=== PATIENT | female | born 1990 | race Caucasian/White ===

== ENCOUNTER → 2022-02-26 11:16 | Outpatient (BNVA) | payer MEDICAID, SELFPAY | PROVIDERS: PCP Registered Nurse; Visit Provider Surgery | DX: L40.9 Psoriasis, unspecified (principal) | CPT/HCPCS: 99202 ==

== ENCOUNTER 2022-09-17 13:49 | Outpatient (REF) | payer OTHER, MEDICAID, SELFPAY ==
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
== END 2022-09-17 13:50 | disposition home or self-care (01) ==
LOC: HO.HHCX 13:49
PROVIDERS: Visit Provider Registered Nurse
DX: M54.50 Low back pain, unspecified (principal); G89.29 Other chronic pain
CPT/HCPCS: 72100

== ENCOUNTER 2023-06-24 10:40 | Outpatient (REF) | payer OTHER, MEDICAID, SELFPAY ==
[2023-06-26 21:48] LABS: TS Negative Control Passed; TS Panel A 0; TS Panel B 1; TS Positive Control Passed; TSpotTB Negative (Negative)
== END 2023-06-24 10:41 | disposition home or self-care (01) ==
LOC: HO.CHCLDS 10:40
PROVIDERS: Visit Provider Internal Medicine
DX: L40.0 Psoriasis vulgaris (principal)
CPT/HCPCS: 36415; 86481

== ENCOUNTER 2023-07-09 11:44 | Outpatient (REF) | payer OTHER, MEDICAID, SELFPAY ==
[2023-07-09 13:12] LABS: MANUAL DIFF FLAG NO
[2023-07-09 13:31] LABS: Basophils Percent Auto 0.4 % (0-2); Eosinophils Absolute Auto 0.4 X10*3/uL (0.0-0.4); Eosinophils Percent Auto 3.5 % (0-4); Hematocrit 39.3 % (37.0-47.0); Hemoglobin 13.5 g/dl (12.0-16.0); Imm Gran Abs Auto 0.03 X10*3/uL (0.00-0.03); Imm Gran Pct Auto 0.3 % (0.0-0.4); Lymphocytes Percent Auto 30.7 % (20-40); Mean Corpuscular HGB Conc 34.4 g/dl (31.0-35.0); Mean Corpuscular Hemoglobin 29.7 pg (27.0-33.0); Mean Corpuscular Volume 86.6 fL (80.0-98.0); Mean Platelet Volume 10.8 fL (9.4-12.3); Monocytes Absolute Auto 0.8 X10*3/uL (0.1-1.2); Monocytes Percent Auto 8.1 % (2-11); Neutrophils Absolute Auto 5.7 x10*3/uL (2.0-8.3); Platelet Count 287 X10*3/uL (160-400); Red Blood Count 4.54 X10*6/uL (4.20-5.50); Red Cell Distribution Width 12.7 % (11.0-16.0); White Blood Count 9.9 X10*3/uL (4.8-10.8)
[2023-07-09 14:02] LABS: Anion Gap 10 (12-20); Blood Urea Nitrogen 12 mg/dL (9-16); Calcium 9.6 mg/dL (8.4-10.2); Carbon Dioxide 23 mmol/L (22-29); Chloride 110 mmol/L (96-108); Cholesterol 167 mg/dL (<200); Estimated Glomerular Filt Rate > 60; Glucose Random 103 mg/dL (60-115); HDL Cholesterol 38 mg/dL (>40); LDL Cholesterol Calculated 108 mg/dL (<100); Potassium 3.9 mmol/L (3.3-5.1); Sodium 139 mmol/L (135-145); Triglycerides 108 mg/dL (<150)
[2023-07-09 14:04] LABS: Vitamin D 25-OH Total 38.4 ng/mL (>30)
[2023-07-09 14:33] LABS: Erythrocyte Sedimentation Rate 17 MM/HR (0-20)
[2023-07-09 14:57] LABS: Estimated Average Glucose 111 mg/dL; Hemoglobin A1c % 5.5 % (<6.0)
[2023-07-10 04:18] LABS: Rheumatoid Factor < 13.0 IU/mL (<15.0)
[2023-07-11 14:39] LABS: Cyclic Citrullinated Peptide <16 UNITS
== END 2023-07-09 11:45 | disposition home or self-care (01) ==
LOC: HO.HHCL 11:44
PROVIDERS: Visit Provider Registered Nurse
DX: M25.571 Pain in right ankle and joints of right foot (principal); M25.572 Pain in left ankle and joints of left foot; E66.01 Morbid (severe) obesity due to excess calories; Z68.42 Body mass index [BMI] 45.0-49.9, adult
CPT/HCPCS: 36415; 80048; 80061; 82306; 83036; 85025; 85652; 86200; 86431

== ENCOUNTER 2025-03-16 11:13 | Outpatient (REF) | payer MEDICAID, SELFPAY ==
--- OUTSIDE RECORDS SUMMARY | 2025-03-12 19:25 | XMS_ITS | Encounter Summary ---
Author Organization [employer] Address [address] [place] [address] Care Team Providers Care Cash Surrender Calculator Name Role Phone [facility] Primary Care Provider [phone] Reason for Referral * Consultation (Routine) - Pending Review Specialty Diagnoses / Procedures Referred By Lawrence avelar Referred To Contact Orthopaedics / Orthopedic Diagnoses Acute pain of right knee Ovi Salazar PA [address] [place] [address] Phone: tel: fax: Referral ID Status Reason Start Date Expiration Date Visits Requested Visits Authorized [id number] Pending Review Specialty Services Required 5 03/12/2026 1 1 Reason for Visit * Reason Comments Knee Pain Encounter Details Date Type Department Care Team (Late st Contact Info) Description 03/12/2025 7:25 PM EST - 03/12/2025 7:44 PM EST Emergency [facility] Emergency [address] [place] [address] Acute pain of right knee (Primary Dx) Discharge Disposition: Home or Self Care Social History Tobacco Use Types Packs/Day Years Used Date Smoking Tobacco: Never Smokeless Tobacco: Never Tobacco Cessation:Counseling Given: Not Answered Comments Unknown Sex and Gender Information Value Date Recorded Sex Assigned at Not on file Legal Sex Female 5:44 AM EST Gender Identity Not on file Sexual Orientation Not on file documented as of this encounter Last Filed Vital Signs Vital Sign Reading Time Taken Comments Blood Pressure 137/81 03/12/2025 6:30 PM EST Pulse 96 03/12/2025 6:30 PM EST Temperature 37 C (98.6 F) 03/12/2025 6:30 PM EST Respiratory Rate 18 03/12/2025 6:30 PM EST Oxygen Saturation 96% 03/12/2025 6:30 PM EST Inhaled Oxygen Concentration - - Weight - - Height - - Body Mass Index - - documented in this encounter Functional Status * Calculated C-SSRS Risk Score (Lifetime/Recent) Answer Date of Assessment Author No Risk Indicated 03/12/2025 6:27 PM EST Fifi Real RN * [place] Suicide Severity Rating Scale (Screener/Recent Self-Report) Question Answer Date of Assessment Author 1. Wish to be (Past 1 Month) No 025 6:27 PM EST Fifi Real RN 2. Non-Specific Active Suici nancy Thoughts (Past 1 Month) No 03/12/2025 6:27 PM EST Fifi Real RN 6. Suicidal Behavior (Lifetime) No 6:27 PM EST Fifi Real RN documented as of this encounter Discharge Instructions * Discharge Instructions* SAKSHI Patiño - 03/12/2025 7:30 PM EST X-ray shows no fracture dislocation or acute bony abnormality Recommend Deondre wrap for the next Jazmine days to 1 week Can walk with cane if needed Ice therapy twice a time for the first 48 hours then switch to heat therapy 20 minutes at a time Tylenol/ibuprofen for pain as needed as directed Follow-up with orthopedist if pain persist greater than 2 weeks for reevaluation/further workup * Attachments The following attachments cannot be sent through Care Everywhere. * Knee Pain or Injury (Wolof) documented in this encounter Medications at Time of Discharge ibuprofen (ADVIL,MOTRIN) 800 mg tablet Take 1 tablet by mouth every 6-8 hours as needed for pain. 30 tablet 03/12/2025 03/22/2025 documented as of this encounter Ordered Prescriptions Prescription Sig Dispense Quantity Refills Last Filled Start Date End Date ibuprofen (ADVIL,MOTRIN) 800 mg tablet Take 1 tablet by mouth every 6-8 hours as needed for pain. 30 tablet 03/12/2025 03/22/2025 documented in this encounter Discharge Disposition Disposition Code Departure Means Destination Comment s Home or Self Care Reviewed discharge and rx instructions, referred to follow up with pcp and ortho, verbalized understanding, self ambulated to exit documented in this encounter Progress Notes * Fifi Real RN - 03/12/2025 6:25 PM EST Patient reports falling back in October in her kitchen has cement floors now reports increased swelling and difficulty walking/bending knee. Patient walking in triage able to move knee back and forth with pain. * SAKSHI Patiño - 03/12/2025 6:23 PM EST HPI Chief Complaint Patient presents with Knee Pain HPI presenting with right knee pain after tripping and falling in the kitchen earlier tonight. Ableto bear weight since the incident. Denies previous knee injury or surgery. Denies hitting head or loss of consciousness. No reported neck or back pain. Not on blood thinners. Ralf Coma Scale Score: 15 Patient History Medical History[1] Surgical History[2] Family History[3] Social History Tobacco Use Smoking status: Never Smokeless tobacco: Never Substance Use Topics Alcohol use: Not on file Drug use: Not on file Review of Systems Review of Systems Physical Exam ED Triage Vitals [03/12/25 1830] Temp Heart Rate Resp BP 37 ??C (98.6 ??F) 96 18 137/81 SpO2 Temp src Heart Rate Source Patient Position 96 % -- -- -- BP Location FiO2 (%) -- -- Physical Exam GENERAL: Well developed, no acute distress HEENT: Normocephalic and atraumatic, EOMI NECK: Supple, trachea is midline RESP: No respiratory distress CARDIOVASCULAR: Regular rate GASTROINTESTINAL: Abdomen is soft, non distended MUSCULOSKELETAL: ROM normal, no obvious acute deformities, distal CMS intact, negative varus valgusstress pain, negative Kayla's, negative Jia's, walking with slight limp SKIN: Warm and dry NEUROLOGIC: At baseline, no acute focal deficits PSYCHIATRIC: Calm and cooperative ED Course & MDM Clinical Impressions as of 03/12/251930 Acute pain of right knee Medical Decision Making DDX: Fracture, dislocation, sprain, strain, other soft tissue injuries Vital signs reviewed Pulse oximetry reviewed and found to be > 94% on room air Physical exam as above Nursing notes reviewed X-rays negative for obvious fracture dislocation acute bony abnormality Social determinants of health considered including housing follow-up social and financial support Patient deemed appropriate for discharge with symptomatic treatment, recommendations to follow-up with primary care doctor / specialist with return precautions provided Procedures Procedure: Splint Application Distal CMS intact prior to splint Deondre wrap applied and fitted appropriately by myself or under my supervision from another staff member of the ED Distal CMS intact after splint Cane provided [1] Past Medical History: Diagnosis Date Arthritis Asthma History of psoriasis [2] History reviewed. No pertinent surgical history. [3] No family history on file. SAKSHI Patiño [birth year]/251931 Cosigned by Aravind Hamilton MD at 03/13/2025 12:21 AM EST documented in this encounter Plan of Treatment Scheduled Referrals Name Type Priority Associated Diagnoses Order Schedule Ambulatory referral to Orthopedic Outpatient Referral Routine 1 Occurrence s starting 03/12/2025 until 03/12/2026 documented as of this encounter Procedures Procedure Name Priority Date/Time Associated Diagnosis Comments XR KNEE 4+ VIEWS RIGHT STAT 03/12/2025 6:47 PM EST POC , URINE DIAGNOSTIC STAT 03/12/2025 6:35 PM EST documented in this encounter Results * XR Knee 4+ Views Right (03/12/2025 6:47 PM EST) Anatomical Region Laterality Modality Lower Extremities, Knee Right [facility] 03/13/2025 7:21 AM EST Impressions 03/13/2025 7:23 AM EST Unremarkable right knee exam. -------- FINAL REPORT -------- Dictated By: Morgan Wayne Dictated Date: 03/13/2025 07:21 ET Assigned Physician: Morgan Wayne Reviewed and Electronically Signed By: Morgan Wayne Signed Date: 03/13/2025 07:23 ET Workstation ID: [id number] Transcribed By: Self Edit Transcribed Date: 03/13/2025 07:21 ET Narrative 03/13/2025 7:23 AM EST EXAMINATION: Right knee 4 views. CLINICAL INDICATIONS: fall in October. Pain . COMPARISON: None. FINDINGS: The tricompartmental joint spaces preserved. No visible acute fracture, loose bodies are dislocation seen. There is no abdominal joint effusion. The soft tissues are normal. Procedure Note Morgan Wayne MD - 03/13/2025 EXAMINATION: Right knee 4 views. CLINICAL INDICATIONS: fall in October. Pain . COMPARISON: None. FINDINGS: The tricompartmental joint spaces preserved. No visible acutefracture, loose bodies are dislocation seen. There is no abdominal jointeffusion. The soft tissues are normal. IMPRESSION: Unremarkable right knee exam. -------- FINAL REPORT -------- Dictated By: Morgan Wayne Dictated Date: 03/13/2025 07:21 ET Assigned Physician: Morgan Wayne Reviewed and Electronically Signed By: Morgan Wayne Signed Date: 03/13/2025 07:23 ET Workstation ID: [id number] Transcribed By: Self Edit Transcribed Date: 03/13/2025 07:21 ET Aravind Hamilton MD IMG XR PROCEDURES Final R esult * POC , urine manually resulted (03/12/2025 6:35 PM EST) HCG, Ur POC Negative Negative POC hCG Int QC Pass? Yes Yes Urine Urine specimen obtained by clean catch procedure / Unknown 03/12/2025 6:35 PM EST Aravind Hamilton MD POINT OF CARE TEST ENTER/ EDIT ORDERABLES Final Result documented in this encounter Visit Diagnoses Diagnosis Acute pain of right knee- Primary documented in this encounter Administered Medications Inactive Administered Medications - up to 3 most recent administrations Medication Order MAR Action Action Date Dose Rate Site acetaminophen (TYLENOL) tablet 1,000 mg 1,000 mg, oral, Once, On 03/12/25 at 1932, For 1 dose Given 03/12/2025 7:38 PM EST 1,000 mg documented in this encounter Active and Recently Administered Medications Times are shown in EST. Scheduled Medication Order 03/10/2025 03/11/2025 03/12/2025 acetaminophen (TYLENOL) tablet 1,000 mg (COMPLETED) 1,000 mg, oral, Once, On 03/12/25 at 1932, For 1 dose 1937 (Given - Provid er: Barbra Malone RN) documented in this encounter Orders General Supply Count Last Ordered Date First Or dered Date GENERAL SUPPLY 1 03/12/2025 documented in this encounter Care Teams Cash Surrender Calculator Relationship Specialty Start Date End Date Ekta Steward [address] [place] [phone] PCP - General Family Medicine 03/12/25 documented as of this encounter
--- OUTSIDE RECORDS SUMMARY | 2025-03-16 10:00 | XMS_ITS | Encounter Summary ---
Author Organization [employer] Address [address] [place] [address] [address] [place] [address] Care Team Providers Care Oracle Technical Architect Name Role Phone Bin [facility] Primary Care Provider [phone] Reason for Visit * Reason Comments Follow-up Encounter Details Date Type Department Care Team ([facility] Contact Info) Description 03/16/2025 10:00 AM EST Office Visit [facility] [address], [place] [phone] [facility] [address] [place] [address] Severe episode of recurrent major depressive disorder, without psychotic features (CMS/HCC) (HCC) (Primary Dx); Dietary counseling; Exercise counseling; Class 3 severe obesity due to excess calories with body mass index (BMI) of 50.0 to 59.9 in adult, unspecified whether serious comorbidity present (HCC); Encounter for immunization Social History Tobacco Use Types Packs/Day Years Used Date Smoking Tobacco: Never Smokeless Tobacco: Never Tobacco Cessation:Counseling Given: Not Answered Alcohol Use Standard Drinks/Week Comments Not Currently 0 (1 standard drink = 0.6 oz pur e alcohol) Depression Answer Date Recorded Patient Health Questionnaire-9 Score 21 03/16/2025 Patient Health Questionnaire-9 Score 21 03/16/2025 Last PHQ-9: Questionnaire Data Not on file 1 05/16/2024 Housing Stability Answer Date Recorded What is your housing situation today? I have valeria darnell 02/17/[address] you li ve. Do you have problems with any of the following? None of the above 02/17/2023 Food Insecurity Answer Date Recorded Within the past 12 months, y ou worried that your food would run out before you got money to buy more: Never True 02/17/2023 Within the past 12 months,th e food you bought just didn't last and you didn't have enough money to get more: Never True Transportation Answer Date Recorded In the past 12 months, has l ack of transportation kept you from medical appts, meetings, work or from getting things needed for daily living? Yes, it has kept me from non-medical meetings, work, or getting things that I need 07/02/2023 Utilities Answer Date Recorded In the past 12 months, has t he electric, gas, oil or water company threatened to shut off services in your home? No 02/17/2023 Depression Answer Date Recorded Patient Health Questionnaire-2 Score 6 03/16/2025 Comments No Sex and Gender Information Value Date Recorded Sex Assigned at Female 02/25/2022 10:38 AM EDT Legal Sex Female 10:38 AM EDT Gender Identity Female 02/25/2022 10:38 AM EDT Sexual Orientation Straight 02/25/2022 10 :38 AM EDT documented as of this encounter Last Filed Vital Signs Vital Sign Reading Time Taken Comments Blood Pressure 120/82 03/16/2025 10:08 AM EST Pulse 84 03/16/2025 10:08 AM EST Temperature 36.5 C (97.7 F) 03/16/2025 10:08 AM EST Respiratory Rate 20 03/16/2025 10:08 AM EST Oxygen Saturation - - Inhaled Oxygen Concentration - - Weight 113 kg (250 lb 3.2 oz) 03/16/2025 10:08 A M EST Height 149.9 cm (4' 11 ) 03/16/2025 10:08 AM EST Body Mass Index 50.53 03/16/2025 10:08 AM EST documented in this encounter Functional Status * Over the past 2 weeks, how often have you been bothered by any of the following problems? Question Answer Date of Assessment Author Patient Health Questionnaire-2 Score 6 03/16/2025 11:24 AM EST Ayanna Harkins LICSW * Little interest or pleasure in doing things Answer Date of Assessment Author Nearly every day 03/16/2025 11:24 AM EST Anamaria Jin LICSW * Feeling down, depressed, or hopeless Answer Date of Assessment Author Nearly every day 03/16/2025 11:24 AM EST RusAnamaria restrepo LICSW * Trouble falling or staying asleep, or sleeping too much Answer Date of Assessment Author Nearly every day 03/16/2025 11:24 AM EST RusAnamaria restrepo LICSW * Feeling tired or having little energy Answer Date of Assessment Author Nearly every day 03/16/2025 11:24 AM EST RusAnamaria restrepo LICSW * Poor appetite or overeating Answer Date of Assessment Author Nearly every day 03/16/2025 11:24 AM EST RusAnamaria restrepo DIRECTOR HYDROGEN STORAGE ENGINEERING * Feeling bad about yourself - or that you are a failure or have let yourself or your family down Answer Date of Assessment Author Nearly every day 03/16/2025 11:24 AM EST Anamaria Jin LICSW * Trouble concentrating on things, such as reading the newspaper or watching television Answer Date of Assessment Author Nearly every day 03/16/2025 11:24 AM EST Anamaria Jin LICSW * Moving or speaking so slowly that other people could have noticed? Or the opposite - being so fidgety or restless that you have been moving around a lot more than usual. Answer Date of Assessment Author Not at all 03/16/2025 11:24 AM Anamaria Gillespie LICSW * Thoughts that you would be better off or hurting yourself in some way Answer Date of Assessment Author Not at all 03/16/2025 11:24 AM Anamaria Gillespie LICSW * Patient Health Questionnaire-9 Score Answer Date of Assessment Author 03/16/2025 11:24 AM Anamaria Gillespie LICSW * Over the last 2 weeks, how often have you been bothered by any of the following problems? Question Answer Date of Assessment Author Feeling nervous, anxious, or on edge 2 03/16/2025 11:24 AM Arun Gillespie LICSW Not being able to stop or control worrying 3 03/16/2025 11:24 AM Arun Gillespie LICSW Worrying too much about different things 3 03/16/2025 11:24 AM EST Arun Harkins LICSW Trouble relaxing 2 03/16/2025 11:24 AM EST Anamaria Harkins LICSW Being so restless that it is hard to sit still 2 03/16/2025 11:24 AM EST Arun Harkins DIRECTOR HYDROG[employer] STORAGE ENGINEERING Becoming easily annoyed or irritable 3 03/16/2025 11:24 AM EST Arun Harkins DIRECTOR HYDROG[employer] STORAGE ENGINEERING Feeling afraid as if something awful might happen 0 03/16/2025 11:24 AM EST Anamaria Jin LICSW LORE-7 Total Score 15 03/16/2025 11:24 AM EST Anamaria Harkins LICSW * How difficult have these problems made it for you to do your work, take care of things at home, or get along with other people? Answer Date of Assessment Author Extremely difficult 03/16/2025 11:24 AM EST Anamaria Livingston LICSW documented as of this encounter Plan of Treatment Upcoming Encounters Date Type Department Care Team (Late st Contact Info) Description 04/27/2025 10:15 AM EST Office Visit [facility] [address] [place] [address] [facility] [address] [place] [address] documented as of this encounter Procedures Procedure Name Priority Date/Time Associated Diagnosis Comments HEMOGLOBIN A1C Routine 03/16/2025 11:18 AM EST Class 3 severe obesity due to excess calories with body mass index (BMI) of 50.0 to 59.9 in adult, unspecified whether serious comorbidity present (HCC) LIPID PANEL, STANDARD Routine 03/16/2025 11:18 AM EST Class 3 severe obesity due to excess calories with body mass index (BMI) of 50.0 to 59.9 in adult, unspecified whether serious comorbidity present (HCC) COMPREHENSIVE METABOLIC PANEL Routine 03/16/2025 11:18 AM EST Class 3 severe obesity due to excess calories with body mass index (BMI) of 50.0 to 59.9 in adult, unspecified whether serious comorbidity present (HCC) documented in this encounter Results * (ABNORMAL) Hemoglobin A1c (03/16/2025 11:18 AM EST) Hemoglobin A1c 6.1(H) <6.0 % [facility] Comment:Hemoglobin A1C Refer ence Range Adults: 4.8 - 6.0 % Non diabetic: < 6.0 % Goal: < 7.0 %Additional Action Suggested: > 8.0 %Note: Hemoglobin A1c results are invalid for patients with abnormal amounts of HbF. Blood transfusions may impact the HbA1c concentration in the patient sample. Estimated Average Glucose 128 mg/dL [facility] Comment:eAG = Estimated ave rage glucose which is %A1C expressed asaverage glucose, using the formula of the [id number] Glucose study (ADAG), Diabetes Care, Vol.31,#8,Nov. 2007 Blood Venous blood specimen / Unknown 03/16/2025 11:18 AM EST 03/16/2025 1:27 PM EST [facility] LAB BLOOD ORDERABLES Final Re sult [facility] [address] [place] [phone] * (ABNORMAL) Lipid Panel, Standard (03/16/2025 11:18 AM EST) Triglycerides 107 <150 mg/dL [facility] Comment:Desirable Triglyceri de: less than 150 mg/dLBorderline High Triglyceride 150-199 mg/dLHigh Triglyceride: 200-499 mg/dLVery High Triglyceride: greater than or equal to 5OO mg/dL Cholesterol 169 <200 mg/dL [facility] Comment:Desirable Cholestero l: less than 200 mg/dLBorderline High Cholesterol: 200-239 mg/dLHigh Cholesterol: greater than 239 mg/dL LDL Cholesterol Calculated 109(H) <100 mg/dL [facility] Comment:Desirable LDL: less than 100 mg/dLNear Optimal/Above Optimal LDL: 110- 129 mg/dLBorderline High LDL: 130-159 mg/dLHigh LDL: 160-189 mg/dLVery High LDL: greater than or equal to 190 mg/dL HDL Cholesterol 39(L) >40 mg/dL [facility] Comment:Desirable HDL: great er than 40 mg/dL Note: This HDL assay may give artificially low results in patients with liver disease. Blood Venous blood specimen / Unknown 03/16/2025 11:18 AM EST 03/16/2025 1:27 PM EST [facility] LAB BLOOD ORDERABLES Final Re sult [facility] [address], [place] [phone] * (ABNORMAL) Comprehensive Metabolic Panel (03/16/2025 11:18 AM EST) Sodium 139 135 - 145 mmol/L [facility] Potassium 4.0 3.3 - 5.1 mmol/L [facility] Chloride 110(H) 96 - 108 mmol/L [facility] Carbon Dioxide 22 22 - 29 mmol/L [facility] Anion Gap 11(L) 12 - 20 [facility] Urea Nitrogen (BUN) 10 9 - 16 mg/dL [facility] Creatinine, Serum 0.63 0.5 - 1.4 mg/dL [facility] Estimated Glomerular Filt Rate >60 [facility] Comment:Chronic Kidney Disea se: Estimated GFR < 60 mL/min/[id number] Kidney Disease: Estimated GFR < 15 mL/min/1.73m2 Glucose 95 60 - 115 mg/dL [facility] Calcium 9.0 8.4 - 10.2 mg/dL [facility] Bilirubin, Total 0.4 0.0 - 1.0 mg/dL [facility] Aspartate Amino Transferase 26 5 - 31 U/L [facility] Alanine Aminotransferase 33(H) 0 - 31 U/L [facility] Total Protein 7.5 6.5 - 8.0 g/dL [facility] Albumin Level 4.2 3.5 - 5.0 g/dL [facility] Alkaline Phosphatase 72 39 - 117 U/L [facility] Blood Venous blood specimen / Unknown 03/16/2025 11:18 AM EST 03/16/2025 1:27 PM EST [facility] LAB BLOOD ORDERABLES Final Re sult [facility] [address] [place] [phone] documented in this encounter Visit Diagnoses Diagnosis Severe episode of recurrent major depressive disorder, without psychotic features (CMS/HCC) (HCC)- Primary Dietary counseling Dietary surveillance and counseling Exercise counseling Class 3 severe obesity due to excess calories with body mass index (BMI) of 50.0 to 59.9 in adult, unspecified whether serious comorbidity present (HCC) Encounter for immunization documented in this encounter Additional Health Concerns Assessment Noted Time PHQ-9 Depression Total Score: 24 025 10:13 AM EST documented as of this encounter Care Teams Oracle Technical Architect Relationship Specialty Start Date End Date BinEkta [facility] [address] [place] [phone] PCP - General Family Medicine 10/23/22 documented as of this encounter
[2025-03-16 15:13] LABS: Alanine Aminotransferase 33 U/L (0-31); Albumin Level 4.2 g/dL (3.5-5.0); Alkaline Phosphatase 72 U/L (39-117); Anion Gap 11 (12-20); Aspartate Amino Transferase 26 U/L (5-31); Blood Urea Nitrogen 10 mg/dL (9-16); Calcium 9.0 mg/dL (8.4-10.2); Carbon Dioxide 22 mmol/L (22-29); Chloride 110 mmol/L (96-108); Cholesterol 169 mg/dL (<200); Estimated Glomerular Filt Rate > 60; HDL Cholesterol 39 mg/dL (>40); Potassium 4.0 mmol/L (3.3-5.1); Sodium 139 mmol/L (135-145); Total Protein 7.5 g/dL (6.5-8.0); Triglycerides 107 mg/dL (<150)
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
--- OUTSIDE RECORDS SUMMARY | 2025-03-16 22:08 | XMS_ITS | Encounter Summary ---
Author Organization [employer] Address [address] [place] [address] 7 [place] [address] Care Team Providers Care Choir Accompanist Name Role Phone [facility] Primary Care Provider [phone] [facility] Primary Care Provider [phone] Reason for Visit * Reason Onset Date Comments triage 08/19/2022 Encounter Details Date Type Department Care Team (Late st Contact Info) Description 08/19/2022 Telephone [facility] [address] [place], [place] [phone] [facility] [address] [place] [address] triage Social History Tobacco Use Types Packs/Day [...] encounter Miscellaneous Notes * Telephone Encounter - Laine Vernon RN - 08/19/2022 1:56 PM EDT Pt also asking about TP appt with new assigned PCP. Will send to [place] to follow up. * Telephone Encounter - Laine Vernon RN - 08/19/2022 1:49 PM EDT Call to pt. Reports finished PT on 07/30/22. Pt only using naproxen and tizandinie as Rx for Lidocaine patches never received. Per pt upper back pain has resolved. Only having lower back pain. Non radiating to legs. Per pt just constant and severe. Pt advised that nothing sooner with PCP or teams. Ptwants referral for Physiatry as discussed at last visit on 07/12/22. Pt agrees to [facility] tomorrow for re-exam. Reviewed operating hours and that wait times vary. Reviewed home care advise and reasons to call back. Protocol Used: Back Pain (Adult) Protocol-Based Disposition: See in Office or Video Visit within 3 Days Video visit offer not recorded Positive Triage Question: * Moderate back pain (e.g., interferes with normal activities) and present > 3 days * All higher-acuity triage questions were negative Care Advice Discussed: * Reassurance and Education - Back Pain * Cold or Heat * Activity * Pain Medicines * Reasons To Call Back - Fever occurs - Numbness or weakness occurs, or bowel/bladder problems - Pain begins to shoot into the leg - Pain becomes worse - You become worse * Telephone Encounter - Jessika Padilla - 08/19/2022 1:33 PM EDT Symptom: Back Pain Outcome: Schedule an appointment to be seen within 3 days Reason: Caller denied all higher acuity questions The caller accepted this outcome Pt calling to inform finish physical therapy but is still having back pain. documented in this encounter Plan of Treatment Upcoming Encounters Date Type Department Care Team (Late st Contact Info) Description 04/27/2025 10:15 AM EST Office Visit [facility] [address] [place] [address] [place] [facility] [address] [place] [address] documented as of this encounter Visit Diagnoses Not on filedocumented in this encounter Care Teams Choir Accompanist Relationship Specialty Start Date End Date Ekta Steward FNP [address] [place] [address] PCP - General Family Medicine 12/24/21 10/22/22 Ekta Steward FNP [address] [place] [address] PCP - General Family Medicine 10/23/22 documented as of this encounter
--- OUTSIDE RECORDS SUMMARY | 2025-03-16 22:08 | XMS_ITS | Encounter Summary ---
Author Organization [employer] Address [address] [place] [address] Care Team Providers Care Juvenile Detention Officer Name Role Phone [facility] Primary Care Provider [phone] [facility] Primary Care Provider [phone] Reason for Visit * Reason Onset Date Comments Other 08/23/2022 Encounter Details Date Type Department Care Team ([facility] st Contact Info) Description 08/23/2022 Telephone [facility] [address] [place], [place] [phone] [facility] [address] [place], [place] [phone] Other Social History Tobacco Use Types Packs/Day Years [...] encounter Miscellaneous Notes * Telephone Encounter - Nellie Santos - 08/23/2022 11:59 AM EDT LVM informing pt to call back for appt. If pt calls back please offer a office visit with [facility] as she has no TP available at this time. If the patient wants to transfer to [facility] message will be sent to floor plan adjuster. * Telephone Encounter - Rosa Martinez - 08/23/2022 11:04 AM EDT Tc from patient requesting to have a PCP in [facility], due to location. Patient currently lives in [place]. documented in this encounter Plan of Treatment Upcoming Encounters Date Type Department Care Team (Late st Contact Info) Description 04/27/2025 10:15 AM EST Office Visit [facility]ICINE [address] [place] [address] Ekta Steward FNP [address] [place] [address] documented as of this encounter Visit Diagnoses Not on filedocumented in this encounter Care Teams Juvenile Detention Officer Relationship Specialty Start Date End Date Ekta Steward FNP [address] [place] [address] PCP - General Family Medicine 12/24/21 10/22/22 Ekta Steward FNP [address] [place] [id number] PCP - General Family Medicine 10/23/22 documented as of this encounter
--- OUTSIDE RECORDS SUMMARY | 2025-03-16 22:08 | XMS_ITS | Clinical Summary ---
Author Organization [facility] Address [address] [place] [address] Phone Care Team Providers Care Transition Assistant Name Role Phone [place] [facility] Primary Care Provider [phone] Allergies Active Allergy Reactions Criticality Noted Date Comments Amoxicillin Hives Low 01/20/2022 Diphenhydramine Hives 12/13/2020 Penicillin Hives 01/20/2022 Medications ibuprofen (ADVIL,MOTRIN) 800 mg tablet Take 1 tablet by mouth every 6-8 hours as needed for pain. 30 tablet 03/12/2025 Active Encounters Date Type Department Care Team Description 03/12/2025 7:25 PM EST - 03/12/2025 7:44 PM EST Emergency [facility] Emergency [address] [place] [address] Acute pain of right knee (Primary Dx) Discharge Disposition: Home or Self Care from Last 3 Months Medical History Medical History Date Comments Asthma History of psoriasis Arthritis Social History Tobacco Use Types Packs/Day Years Used Date Smoking Tobacco: Never Smokeless Tobacco: Never Tobacco Cessation:Counseling Given: Not Answered Comments Unknown Sex and Gender Information Value Date Recorded Sex Assigned at Not on file Legal Sex Female 5:44 AM EST Gender Identity Not on file Sexual Orientation Not on file Obstetrics History Last Filed Vital Signs Vital Sign Reading Time Taken Comments Blood Pressure 137/81 03/12/2025 6:30 PM EST Pulse 96 03/12/2025 6:30 PM EST Temperature 37 C (98.6 F) 03/12/2025 6:30 PM EST Respiratory Rate 18 03/12/2025 6:30 PM EST Oxygen Saturation 96% 03/12/2025 6:30 PM EST Inhaled Oxygen Concentration - - Weight - - Height - - Body Mass Index - - Plan of Treatment Health Maintenance Due Date Last Done Comments Hepatitis B Vaccines (1 of 3 - 19+ 3-dose series) 2009 Cervical Cancer Screening: Pap Smear 01/01/2012 Pneumococcal Vaccine: Pediatrics (0 to 5 Years) and At-Risk Patients (6 to 49 Years) (2 of 2 - PCV) 01/25/2015 01/25/2014 HPV Vaccines (1 - 3-dose SCDM series) 2017 Hepatitis C Screening 03/31/2022 Social Influencers of Health Screening 03/31/2022 Depression Screening 04/28/2024 COVID-19 Vaccine ( - 2024- season) 2024 01/03/2021, 12/13/2020 Influenza Vaccine (#1) 2024 , 01/14/2022, 06/23/2018, Additional history exists DTaP,Tdap,and Td Vaccines (2 - Td or Tdap) 04/15/2028 04/15/2018 RSV Immunization Adult Patients (1 - 1-dose 75+ series) 2065 HIV Screening Completed 06/05/2021 HIB Vaccines Aged Out No longer eligi ble based on patient's age to complete this topic Hepatitis A Vaccines Aged Out No long er eligible based on patient's age to complete this topic IPV Vaccines Aged Out No longer eligi ble based on patient's age to complete this topic MMR Vaccines Aged Out No longer eligi ble based on patient's age to complete this topic Meningococcal ACWY Vaccine Aged Out N o longer eligible based on patient's age to complete this topic Meningococcal B Vaccine Aged Out No l onger eligible based on patient's age to complete this topic RSV Immunization Patients Under 20 months Aged Out No longer eligible based on patient's age to complete this topic Varicella Vaccines Aged Out No longer eligible based on patient's age to complete this topic Procedures Procedure Name Priority Date/Time Associated Diagnosis Comments XR KNEE 4+ VIEWS RIGHT STAT 03/12/2025 6:47 PM EST POC , URINE DIAGNOSTIC STAT 03/12/2025 6:35 PM EST from Last 3 Months Results * XR Knee 4+ Views Right (03/12/2025 6:47 PM EST) Anatomical Region Laterality Modality Lower Extremities, Knee Right [facility] 03/13/2025 7:21 AM EST Impressions 03/13/2025 7:23 AM EST Unremarkable right knee exam. -------- FINAL REPORT -------- Dictated By: Morgan Wayne Dictated Date: 03/13/2025 07:21 ET Assigned Physician: Morgan Wayne Reviewed and Electronically Signed By: Morgan Wayne Signed Date: 03/13/2025 07:23 ET Workstation ID: [id number] Transcribed By: Self Edit Transcribed Date: 03/13/2025 [...] Signed Date: 03/13/2025 07:23 ET Workstation ID: [id number] Transcribed By: Self Edit Transcribed Date: 03/13/2025 [...] CARE TEST ENTER/ EDIT ORDERABLES Final Result from Last 3 Months Insurance MEDICAID - [place] Care Teams Transition Assistant Relationship Specialty Start Date End Date [facility] [address] [place] [phone] PCP - General Family Medicine 03/12/25
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
--- OUTSIDE RECORDS SUMMARY | 2025-03-16 22:09 | XMS_ITS | Encounter Summary ---
Author Organization [employer] Address [address] [place] [address] [place] [address] Care Team Providers Care Service Desk Team Lead Name Role Phone [facility] Primary Care Provider [phone] Reason for Visit * Reason Onset Date Comments Appointment Request 11/25/2023 Encounter Details Date Type Department Care Team ([facility] st Contact Info) Description 11/25/2023 Telephone [facility] [address] [place], [place] [phone] [facility] [address] [place] [address] Appointment Request Social History Tobacco Use Types Packs/Day Years Used Date Smoking Tobacco: Never Smokeless Tobacco: Never Alcohol Use Standard Drinks/Week Comments Not Currently 0 (1 standard drink = 0.6 oz pur e alcohol) Depression Answer Date Recorded Patient Health Questionnaire-9 Score 16 07/09/2023 Patient Health Questionnaire-9 Score 16 07/09/2023 Last PHQ-9: Questionnaire Data Not on file 0 07/09/2023 Housing Stability Answer Date Recorded What is [...] Answer Date Recorded Patient Health Questionnaire-2 Score 4 07/09/2023 Comments No Sex and Gender Information Value Date Recorded Sex Assigned at Female 02/25/2022 10:38 AM EDT Legal Sex Female 10:38 AM EDT Gender Identity Female 02/25/2022 10:38 AM EDT Sexual Orientation Straight 02/25/2022 10 :38 AM EDT documented as of this encounter Miscellaneous Notes * Telephone Encounter - Jessika Padilla - 11/25/2023 9:35 AM EDT Tc from pt requesting to book her next derm follow up appt. documented in this encounter Plan of Treatment Upcoming Encounters Date Type Department Care Team (Late st Contact Info) Description 04/27/2025 10:15 AM EST Office Visit [facility] [address] [place] [address] Ekta Steward FNP [address] [place] [address] documented as of this encounter Visit Diagnoses Not on filedocumented in this encounter Additional Health Concerns Assessment Noted Time PHQ-9 Depression Total Score: 16 024 11:42 AM EDT documented as of this encounter Care Teams Service Desk Team Lead Relationship Specialty Start Date End Date Ekta Steward FNP [address] [place] [address] PCP - General Family Medicine 10/23/22 documented as of this encounter
--- OUTSIDE RECORDS SUMMARY | 2025-03-16 22:09 | XMS_ITS | Encounter Summary ---
Author Organization [employer] Address [address] [place] [address] 7 [place] [address] Care Team Providers Care Grinder Operator Automatic Name Role Phone [facility] Primary Care Provider Reason for Visit * Reason Onset Date Comments Reschedule 04/03/2023 Encounter Details Date Type Department Care Team ([facility] st Contact Info) Description 04/03/2023 Telephone [facility] [address] [place], [place] [phone] [facility] [address] [place] [address] Reschedule Social History Tobacco Use Types Packs/Day Years [...] encounter Miscellaneous Notes * Telephone Encounter - Bianca Levy - 05/05/2023 10:47 AM EST Tc from pt requesting r/s derm appt. * Telephone Encounter - Darrius Martin - 04/16/2023 9:14 AM EST Tc from pt calling in regards to message prior. * Telephone Encounter - Chica Ziegler - 04/03/2023 3:19 PM EST Tc from pt requesting r/s derm appt. documented in this encounter Plan of Treatment Upcoming Encounters Date Type Department Care Team (Late st Contact Info) Description 04/27/2025 10:15 AM EST Office Visit [facility] [address] [place] [address] Ekta Steward FNP [address] [place] [address] documented as of this encounter Visit Diagnoses Not on filedocumented in this encounter Additional Health Concerns Assessment Noted Time PHQ-9 Depression Total Score: 0 09/18/19 1:05 PM EDT documented as of this encounter Care Teams Grinder Operator Automatic Relationship Specialty Start Date End Date Ekta Steward FNP [address] [place] [address] PCP - General Family Medicine 10/23/22 documented as of this encounter
--- OUTSIDE RECORDS SUMMARY | 2025-03-16 22:09 | XMS_ITS | Encounter Summary ---
Author Organization [employer] Address [address] [place] [address] 7 [place] [address] Care Team Providers Care Vice President Biostatistics Name Role Phone [facility] Primary Care Provider [phone] Reason for Visit * Reason Comments Med Refill Encounter Details Date Type Department Care Team ([facility] st Contact Info) Description 11/24/2023 Refill [facility] [address] [place], [place] [phone] [facility] [address] [place] [address] Plaque psoriasis Social History Tobacco Use Types Packs/Day Years [...] AM EDT documented as of this encounter Plan of Treatment Upcoming Encounters Date Type Department Care Team (Late st Contact Info) Description 04/27/2025 10:15 AM EST Office Visit [facility] [address] [place] [address] Ekta Steward [facility] [address] [place] [address] documented as of this encounter Visit Diagnoses Diagnosis Plaque psoriasis Other psoriasis documented in this encounter Additional Health Concerns Assessment Noted Time PHQ-9 Depression Total Score: 16 024 11:42 AM EDT documented as of this encounter Care Teams Vice President Biostatistics Relationship Specialty Start Date End Date Ekta Steward FNP [address] [place] [address] PCP - General Family Medicine 10/23/22 documented as of this encounter
--- OUTSIDE RECORDS SUMMARY | 2025-03-16 22:09 | XMS_ITS | Encounter Summary ---
Author Organization [employer] Address [address] [place] [address] 7 [place] [address] Care Team Providers Care Relationship Consultant Name Role Phone [facility] Primary Care Provider [phone] [facility] Primary Care Provider [phone] Reason for Visit * Reason Onset Date Comments Call back 07/12/2022 Encounter Details Date Type Department Care Team (Late st Contact Info) Description 07/12/2022 Telephone [facility] [address] [place], [place] [phone] [facility] [address] [place], [place] [phone] Call back Social History Tobacco Use Types Packs/Day Years [...] * Telephone Encounter - Bianca Levy - 07/12/2022 2:18 PM EDT Tc from pt returning phone call regarding visit today regarding a claim number that was needed frompt. Please contact pt for more details at [phone] documented in this encounter Plan of Treatment Upcoming Encounters Date Type Department Care Team (Late st Contact Info) Description 04/27/2025 10:15 AM EST Office Visit [facility] [address] [place] [address] Ekta Steward FNP [address] [place] [address] documented as of this encounter Visit Diagnoses Not on filedocumented in this encounter Care Teams Relationship Consultant Relationship Specialty Start Date End Date Ekta Steward FNP [address] [place] [id number] PCP - General Family Medicine 12/24/21 10/22/22 Ekta Steward FNP [address] [place] [id number] PCP - General Family Medicine 10/23/22 documented as of this encounter
--- OUTSIDE RECORDS SUMMARY | 2025-03-16 22:09 | XMS_ITS | Encounter Summary ---
Author Organization [employer] Address [address] [facility] 7 [place] [address] Care Team Providers Care Messenger Floorperson Name Role Phone [facility] Primary Care Provider [phone] Encounter Details Date Type Department Care Team (Latest Contact Info) Description 03/16/2025 Travel Social History Tobacco Use Types Packs/Day Years [...] AM EDT documented as of this encounter Functional Status * Over the past 2 weeks, how often have you been bothered by any of the following problems? Question Answer Date of Assessment Author Patient Health Questionnaire-2 Score 6 03/16/2025 11:24 AM EST Rusinque, Ayanna ajith, VISCOSE DEPARTMENT WORKER * Little interest or pleasure in doing things Answer Date of Assessment Author Nearly every day 03/16/2025 11:24 AM EST Rusinqu e, Anamaria, VISCOSE DEPARTMENT WORKER * Feeling down, depressed, or hopeless Answer Date of Assessment Author Nearly every day 03/16/2025 11:24 AM EST Rusinqu e, Anamaria, VISCOSE DEPARTMENT WORKER * Trouble falling or staying asleep, or sleeping too much Answer Date of Assessment Author Nearly every day 03/16/2025 11:24 AM EST Rusinqu e, Anamaria, VISCOSE DEPARTMENT WORKER * Feeling tired or having little energy Answer Date of Assessment Author Nearly every day 03/16/2025 11:24 AM EST Rusinqu e, Anamaria, VISCOSE DEPARTMENT WORKER * Poor appetite or overeating Answer Date of Assessment Author Nearly every day 03/16/2025 11:24 AM EST Rusinqu e, Anamaria, VISCOSE DEPARTMENT WORKER * Feeling bad about yourself - or that you are a failure or have let yourself or your family down Answer Date of Assessment Author Nearly every day 03/16/2025 11:24 AM EST Rusinqu e, Anamaria, VISCOSE DEPARTMENT WORKER * Trouble concentrating on things, such as reading the newspaper or watching television Answer Date of Assessment Author Nearly every day 03/16/2025 11:24 AM EST Rusinqu e, Anamaria, VISCOSE DEPARTMENT WORKER * Moving or speaking so slowly that other people could have noticed? Or the opposite - being so fidgety or restless that you have been moving around a lot more than usual. Answer Date of Assessment Author Not at all 03/16/2025 11:24 AM EST Anamaria Harkins LICSW * Thoughts that you would be better off or hurting yourself in some way Answer Date of Assessment Author Not at all 03/16/2025 11:24 AM EST Anamaria Harkins LICSW * Patient Health Questionnaire-9 Score Answer Date of Assessment Author 21 03/16/2025 11:24 AM EST Anamaria Harkins LICSW * Over the last 2 weeks, how often have you been bothered by any of the following problems? Question Answer Date of Assessment Author Feeling nervous, anxious, or on edge 2 03/16/2025 11:24 AM EST Arun Harkins VISCOSE DEPARTMENT WORKER Not being able to stop or control worrying 3 03/16/2025 11:24 AM EST Arun Harkins VISCOSE DEPARTMENT WORKER Worrying too much about different things 3 03/16/2025 11:24 AM EST Arun Harkins VISCOSE DEPARTMENT WORKER Trouble relaxing 2 03/16/2025 11:24 AM EST Anamaria Harkins LICSW Being so restless that it is hard to sit still 2 03/16/2025 11:24 AM EST Arun Harkins VISCOSE DEPARTMENT WORKER Becoming easily annoyed or irritable 3 03/16/2025 11:24 AM EST Arun Harkins VISCOSE DEPARTMENT WORKER Feeling afraid as if something awful might [...] Description 04/27/2025 10:15 AM EST Office Visit [facility] [address] [place] [address] EdnaEkta, [facility] [address] [place], [place] [phone] documented as of this encounter Visit Diagnoses Not on filedocumented in this encounter Additional Health Concerns Assessment Noted Time PHQ-9 Depression Total Score: 21 025 11:24 AM EST documented as of this encounter Care Teams Messenger Floorperson Relationship Specialty Start Date End Date Ekta Steward FNP [address] [place] [address] PCP - General Family Medicine 10/23/22 documented as of this encounter
--- OUTSIDE RECORDS SUMMARY | 2025-03-16 22:10 | XMS_ITS | Encounter Summary ---
Author Organization [employer] Address [address] [place] [address] [place] [address] Care Team Providers Care Photographer'S Assistant Name Role Phone [place] [facility] Primary Care Provider [phone] Reason for Visit * Reason Onset Date Comments chart prep 03/15/2025 Encounter Details Date Type Department Care Team ([facility] st Contact Info) Description 03/15/2025 Telephone [facility] [address] [place], [place] [phone] [place] [facility] [address] [place] [address] chart prep Social History Tobacco Use Types Packs/Day Years [...] encounter Miscellaneous Notes * Telephone Encounter - Brandan Anguiano [place] - 03/15/2025 10:54 AM EST Chart Prep Labs: not applicable Images: done Referrals: not applicable Vaccines due: Covid, Flu, PCV20, Hep B, and HPV Screenings: not applicable Overdue care gaps: SBIRT, SDOH, PHQ-9, LORE-7, and Tobacco documented in this encounter Plan of Treatment Upcoming Encounters Date Type Department Care Team (Late st Contact Info) Description 04/27/2025 10:15 AM EST Office Visit [facility] [address] [place] [address] Ekta Steward FNP [address] [place] [address] documented as of this encounter Visit Diagnoses Not on filedocumented in this encounter Additional Health Concerns Assessment Noted Time PHQ-9 Depression Total Score: 0 01/26/20 24 10:41 AM EDT documented as of this encounter Care Teams Photographer'S Assistant Relationship Specialty Start Date End Date Ekta Steward FNP [address] [place] [address] PCP - General Family Medicine 10/23/22 documented as of this encounter
== END 2025-03-16 11:14 | disposition home or self-care (01) ==
LOC: HO.HHCL 11:13
PROVIDERS: PCP Registered Nurse; Visit Provider Registered Nurse
DX: E66.813 Obesity, class 3 (principal); Z68.43 Body mass index [BMI] 50.0-59.9, adult
CPT/HCPCS: 36415; 80053; 80061; 83036